=== PATIENT | female | born 1955 | race Caucasian/White ===

== ENCOUNTER 2024-05-19 10:29 | Emergency (ER) | payer MEDICARE, OTHER ==
[2024-05-19 11:39] LABS: CORONAVIRUS COVID-19 NAA POSITIVE (NEGATIVE); INFLUENZA A NAA NEGATIVE (NEGATIVE); INFLUENZA B NAA NEGATIVE (NEGATIVE); RESPIRATORY SYNCYTIAL VIR NAA NEGATIVE (NEGATIVE)
[2024-05-19] MEDS: Acetaminophen 500 MG Tab PO ONE (13:56)
[2024-05-19] MEDS: Sodium Chloride 0.9% 10 ML Syringe FLUSH PRN (13:57)
[2024-05-19] MEDS: Sodium Chloride 0.9% 2.5 ML Syringe FLUSH PRN (13:57)
[2024-05-19 14:04] LABS: BASOPHILS ABSOLUTE AUTO 0.04 K/uL (0.00-0.20); BASOPHILS PERCENT AUTO 0.6 % (0.0-1.0); EOSINOPHILS ABSOLUTE AUTO 0.18 K/uL (0.00-0.45); EOSINOPHILS PERCENT AUTO 2.7 % (0.0-6.0); HEMATOCRIT 38.3 % (37.0-47.0); HEMOGLOBIN 12.7 g/dL (12.0-16.0); IMMATURE GRAN ABSOLUTE AUTO 0.04 K/uL (0.00-0.05); IMMATURE GRAN PERCENT AUTO 0.6 % (0.0-0.4); LYMPHOCYTES ABSOLUTE AUTO 1.46 K/uL (1.00-4.80); LYMPHOCYTES PERCENT AUTO 22.1 % (24.0-44.0); MEAN CORPUSCULAR HEMOGLOBIN 32.2 pg (28.0-32.0); MEAN CORPUSCULAR HGB CONC 33.2 g/dL (32.0-36.0); MEAN CORPUSCULAR VOLUME 97.2 fL (83.0-99.0); MEAN PLATELET VOLUME 9.1 fL (9.4-12.3); MONOCYTES PERCENT AUTO 7.6 % (0.0-8.0); NEUTROPHILS PERCENT AUTO 66.4 % (41.0-71.0); PLATELET COUNT,PLT 216 K/uL (150-400); RED BLOOD CELL COUNT 3.94 M/uL (4.10-5.30); WHITE BLOOD CELL COUNT,WBC 6.62 K/uL (3.9-11.3)
[2024-05-19 14:19] LABS: INR 1.03 (0.86-1.11)
[2024-05-19 14:36] LABS: A/G RATIO 1.2 (0.9-1.6); ALBUMIN 3.8 g/dL (3.4-5.0); BILIRUBIN TOTAL 0.6 mg/dL (0.2-1.0); CALCIUM 8.8 mg/dL (8.5-10.1); CARBON DIOXIDE,CO2 27.9 mmol/L (21.0-32.0); CREATININE 0.8 mg/dL (0.6-1.0); EST CRCL DRUG DOSING (CG) 59.72 mL/min; POTASSIUM,K 4.3 mmol/L (3.5-5.1); PROTEIN TOTAL,TP 6.9 g/dL (6.4-8.2)
[2024-05-19] MEDS: Ondansetron 4 MG/2 ML SDV IVPUSH ONE (15:41)
[2024-05-19] MEDS: Iopamidol 755 MG/ML 500 ML Multipack Bottle IVPUSH STA (18:07)
== END 2024-05-19 19:08 | disposition home or self-care (01) ==
LOC: MW.ED 10:29
DX: U07.1 COVID-19 (principal); E78.00 Pure hypercholesterolemia, unspecified; E03.9 Hypothyroidism, unspecified; Z79.899 Other long term (current) drug therapy; Z79.890 Hormone replacement therapy
CPT/HCPCS: 0241U; 36415; 71275; 74174; 80053; 83690; 85025; 85610; 96374; 99284; A9270; J2405; J3490; Q9967

== ENCOUNTER 2024-06-18 10:30 | Emergency (ER) | payer MEDICARE, OTHER ==
[2024-06-18] MEDS: Famotidine 20 MG Tab PO ONE (10:56)
[2024-06-18] MEDS: Acetaminophen 500 MG Tab PO ONE (10:56)
[2024-06-18] MEDS: Loperamide 2 MG Cap PO ONE (10:58)
[2024-06-18 11:03] LABS: BASOPHILS ABSOLUTE AUTO 0.01 K/uL (0.00-0.20); BASOPHILS PERCENT AUTO 0.1 % (0.0-1.0); EOSINOPHILS ABSOLUTE AUTO 0.19 K/uL (0.00-0.45); EOSINOPHILS PERCENT AUTO 2.5 % (0.0-6.0); HEMATOCRIT 36.6 % (37.0-47.0); HEMOGLOBIN 12.6 g/dL (12.0-16.0); IMMATURE GRAN ABSOLUTE AUTO 0.02 K/uL (0.00-0.05); IMMATURE GRAN PERCENT AUTO 0.3 % (0.0-0.4); LYMPHOCYTES ABSOLUTE AUTO 1.18 K/uL (1.00-4.80); LYMPHOCYTES PERCENT AUTO 15.6 % (24.0-44.0); MEAN CORPUSCULAR HEMOGLOBIN 32.6 pg (28.0-32.0); MEAN CORPUSCULAR HGB CONC 34.4 g/dL (32.0-36.0); MEAN CORPUSCULAR VOLUME 94.8 fL (83.0-99.0); MEAN PLATELET VOLUME 9.1 fL (9.4-12.3); MONOCYTES ABSOLUTE AUTO 0.74 K/uL (0.00-0.80); MONOCYTES PERCENT AUTO 9.8 % (0.0-8.0); NEUTROPHILS ABSOLUTE AUTO 5.43 K/uL (1.80-7.70); NEUTROPHILS PERCENT AUTO 71.7 % (41.0-71.0); PLATELET COUNT,PLT 178 K/uL (150-400); RED BLOOD CELL COUNT 3.86 M/uL (4.10-5.30); WHITE BLOOD CELL COUNT,WBC 7.57 K/uL (3.9-11.3)
[2024-06-18 11:25] LABS: ALBUMIN 3.4 g/dL (3.4-5.0); BILIRUBIN TOTAL 0.8 mg/dL (0.2-1.0); CALCIUM 8.6 mg/dL (8.5-10.1); CARBON DIOXIDE,CO2 26.7 mmol/L (21.0-32.0); CREATININE 0.8 mg/dL (0.6-1.0); EST CRCL DRUG DOSING (CG) 59.72 mL/min; POTASSIUM,K 3.5 mmol/L (3.5-5.1); PROTEIN TOTAL,TP 6.9 g/dL (6.4-8.2)
[2024-06-18] MEDS: Azithromycin 250 MG Tab PO ONE (12:01)
== END 2024-06-18 12:08 | disposition home or self-care (01) ==
LOC: MW.ED 10:30
DX: R19.7 Diarrhea, unspecified (principal); E78.00 Pure hypercholesterolemia, unspecified; E03.9 Hypothyroidism, unspecified; Z79.899 Other long term (current) drug therapy
CPT/HCPCS: 36415; 80053; 83690; 85025; 99284; A9270